=== PATIENT | female | born 2000 | race American Indian/Alaskan Native ===

== ENCOUNTER 2022-06-21 23:23 | Outpatient (CLI) | payer MEDICAID, BC ==
[2022-06-22] MEDS ORDERED: BICITRA ORAL LIQD 30ML PO ONE (00:15)
[2022-06-22] MEDS ORDERED: LACTATED RINGERS 1,000 ML IV ONE (00:16)
[2022-06-22 02:20] VITALS: BP 105/71
--- NOTE | 2022-06-22 02:37 | Ultrasound Report ---
Limited OB ultrasound INDICATION: Abdominal pain FINDINGS: Proximal mid aorta appear normal. Liver is unremarkable. No gallbladder wall thickening or pericholecystic fluid. Common bile but measures 2 mm. Right kidney appears normal without hydronephro sis IMPRESSION: No acute findings are seen. Signer Name: Jarret Hernández MD Signed: 06/22/2022 2:33 AM Workstation Name: [id number]
== END 2022-06-22 02:55 | disposition home or self-care (01) ==
LOC: TRG 23:23 → APU 23:28 → TRG 06-22 02:55
PROVIDERS: ATTEND Obstetrics & Gynecology
DX: R10.9 Unspecified abdominal pain (principal)
CPT/HCPCS: 76705